=== PATIENT | female | born 1960 | race Caucasian/White ===

== ENCOUNTER → 2017-04-13 | Outpatient (CLI) | payer BC ==
[~2017-04-13] MED LIST: ALBIPROI INH; ALBU90OI INH; AZIT250 PO; AZIT500 PO; Adipex-P37.5 M1 PO; Albuterol2.5 MG/0.5 INH; BECLOMETHASONE10 GM; CARI350 PO; CITA20 PO; CONEST.625 PO; Citalopram HBr20 MG PO; DEXILANT30 MG PO; DEXL60CA3 PO; DOXY100 PO; ESCI10 PO; ESTR25VT PV; ESTRADIOL1 MG PO; FEXO180 PO; FEXO60 PO; FLONASE ALLERG9.9 ML NS; FLUSAL1005 IH; FLUSAL2505 IH; FLUT.05NI; GREEN COFFEE B400 MG; HYDCHLSU PO; HYOS.125 SL; Hydrocodone-Ap1 EA20 PO; IBUHYD PO; LEVCAR10 PO; LEVFLO500 PO; LEVO-T88 MCG PO; LEVSOD88 PO; LORA1 PO; MELO7.5 PO; MILN100T PO; MIRALAX17 GM PO; MOMENI; Mobic15 MG PO; NODOLOR CAPSUL1 EACH PO; OXYC80ER PO; Omeprazole20 M1; PHENTERMINE PO; POLY17UD PO; PRED20 PO; QVAR INH; QVAR7.3 G1; RABE20 PO; SOMA350 MG PO; TEMA15 PO; TEMA7.5 PO; VAGIFEM10 MCG VG; VENL37.5ER PO; [UNRECOGNIZED DRUG - OTHER] PO
[2017-04-16 15:04] LABS: Rheumatoid Factor, Serum Negative (Negative)
[2017-04-18 11:17] LABS: Antinuclear Antibody Screen Positive Cytoplasmic (Negative)
[2017-04-18 11:18] LABS: ANA Pattern Speckled
== END | disposition home or self-care (01) ==
LOC: OLS 13:40
PROVIDERS: Hospitalist
DX: M19.90 Unspecified osteoarthritis, unspecified site (principal); M25.50 Pain in unspecified joint
CPT/HCPCS: 85651; 86038; 86039; 86430

== ENCOUNTER → 2017-11-20 | Outpatient (CLI) | payer BC ==
[2017-11-21 13:10] LABS: Percent Saturation 29.9 % (15.0-50.0)
== END | disposition home or self-care (01) ==
LOC: LAB 15:55 → LAB SHORT 15:55
PROVIDERS: Hospitalist
DX: E55.9 Vitamin D deficiency, unspecified (principal); R78.89 Finding of other specified substances, not normally found in blood
CPT/HCPCS: 82306; 82728; 83540; 83550

== ENCOUNTER → 2018-04-29 | Outpatient (CLI) | payer SELFPAY ==
[2018-04-29 14:15] LABS: Free Thyroxine 0.87 ng/dL (0.70-1.60)
[2018-04-29 14:18] LABS: Thyroid Stimulating Hormone 0.04 uIU/mL (0.360-4.800)
== END | disposition home or self-care (01) ==
LOC: LAB 10:59 → LAB SHORT 10:59
PROVIDERS: Hospitalist
DX: E03.9 Hypothyroidism, unspecified (principal)
CPT/HCPCS: 84439; 84443

== ENCOUNTER → 2018-09-03 | Outpatient (CLI) | payer OTHER ==
[2018-09-03 11:01] LABS: Anion Gap 5 mmol/L (6-16); Blood Urea Nitrogen 17 mg/dL (8-24); Bun/Creatinine Ratio 31.2 (12.0-20.0); CO2, Blood 32 mmol/L (21-32); Calcium, Blood 8.5 mg/dL (8.5-10.1); Chloride, Blood 106 mmol/L (98-108); Creatinine, Blood 0.54 mg/dL (0.40-1.00); Glomerular Filtration Rate >60 (60-); Glucose, Blood 117 mg/dL (70-99); Potassium, Blood 3.6 mmol/L (3.5-5.5); Sodium, Blood 143 mmol/L (136-145)
== END | disposition home or self-care (01) ==
LOC: LAB 10:22 → LAB SHORT 10:22
PROVIDERS: Hospitalist
DX: R60.9 Edema, unspecified (principal)
CPT/HCPCS: 80048

== ENCOUNTER 2018-10-23 10:18 | Day surgery (SDC) | payer OTHER ==
[~2018-10-23] VITALS: Ht 160 cm; Wt 69.7 kg
[2018-10-23] MEDS ORDERED: VITAMIN D5000 UNIT (11:32)
[2018-10-23] MEDS ORDERED: DHEA (11:32)
[2018-10-23] MEDS ORDERED: IRON236 MG (11:32)
[2018-10-23] MEDS ORDERED: OXYC10ER (11:33)
[2018-10-23] MEDS ORDERED: ESTR2 (11:33)
[2018-10-23] MEDS ORDERED: GARCINIA CAMBO1 EACH (11:33)
--- NOTE | 2018-10-23 15:27 | NUR ---
10/23/18 1527 Constanza Morrell (Gali AFTER PROCEDURE BEGAN, PATIENT'S BLOOD PRESSURE SPIKED TO 200/100. BLOOD PRESSURE CONTINUED TO INCREASE. DR. URBANO NOTIFIED. PROCEDURE STOPPED, SCOPE REMOVED. WHEN PRESSURE REACHED 240/114 DR. URBANO ORDERED 10MG LABETALOL IVP. MEDICATION ADMINISTERED AND PATIENT'S BLOOD PRESSURE RETURNED TO BASELINE OF 141/63. IN RECOVERY PATIENT'S BLOOD PRESSURE 135/64, 135/65. DR. URBANO DISCHARGED PATIENT HOME WITH REFERRAL TO SEE PRIMARY CARE PHYSICIAN TO ADDRESS HYPERTENSION. PT AGREED WITH PLAN TO CONTACT PCP, DENIED NEEDS OR COMPLAINTS. PT DISCHARGED HOME WITH PAIN RATED AT 5/10 FOR "ALL OVER PAIN" INCLUDING ABDOMINAL, NECK, BACK, HIP PAIN. PT REPORTED 7/10 PAIN UPON ADMISSION. PT STS PAIN IMPROVED AFTER PROCEDURE.
== END 2018-10-23 12:50 | disposition home or self-care (01) ==
LOC: ORSCSDS 10:18
PROVIDERS: Internal Medicine Gastroenterology
PROC: 0D758ZZ Dilation of Esophagus, Via Natural or Artificial Opening Endoscopic (ICD-10-PCS; principal; 2018-10-23 12:00)
DX: R13.10 Dysphagia, unspecified (principal); K22.2 Esophageal obstruction; Z87.891 Personal history of nicotine dependence; J45.909 Unspecified asthma, uncomplicated; E03.9 Hypothyroidism, unspecified; Z79.899 Other long term (current) drug therapy
CPT/HCPCS: C1726; J2704; J7120

== ENCOUNTER 2018-11-13 09:07 | Day surgery (SDC) | payer OTHER ==
[~2018-11-13] VITALS: Ht 157.5 cm; Wt 69.3 kg
[~2018-11-13 09:07] MED LIST changes: +DHEA; +ESTR2; +GARCINIA CAMBO1 EACH; +IRON236 MG; +OXYC10ER; +VITAMIN D5000 UNIT
[2018-11-13] MEDS ORDERED: Fentanyl1 EAC4 (09:42)
--- NOTE | 2018-11-13 12:18 | NUR ---
11/13/18 1218 Kimberli Castro S PT. C/O LEFT SHOULDER & NECK PAIN POST PROCEDURE. PT. VERBALZIES HAVING PAIN IN THESE AREAS AFTER HER SURGERY FOR FUNDOPLICATION ON OCTOBER 01, 2018. PT. VERBALIZES HAVING PT YESTERDAY. PT. ALSO C/O NAUSEA & WAS GIVEN ZOFRAN PER [facility]DLB PER DR. MARTINES. PT. SPITTING UP OBSERVED TO BE LIKE "SPIT" SECRETIONS. PT. VERBALIZES FEELING LIKE SOMETHING IS IN HER STOMACH & IT NEEDS TO COME UP BUT CAN'T. PT. DENIES SORE THROAT. DR. URBANO AWARE & ORDERED CT SCAN. PT.CRYING/WHIMPERING AT TIMES.
== END 2018-11-13 13:33 | disposition home or self-care (01) ==
LOC: ORSCSDS 09:07
PROVIDERS: Internal Medicine Gastroenterology
PROC: 0D758ZZ Dilation of Esophagus, Via Natural or Artificial Opening Endoscopic (ICD-10-PCS; principal; 2018-11-13 10:30)
DX: R13.10 Dysphagia, unspecified (principal); K21.9 Gastro-esophageal reflux disease without esophagitis; K22.2 Esophageal obstruction; I10 Essential (primary) hypertension; M79.7 Fibromyalgia; E03.9 Hypothyroidism, unspecified; J45.909 Unspecified asthma, uncomplicated; Z87.891 Personal history of nicotine dependence; Z79.899 Other long term (current) drug therapy
CPT/HCPCS: 71250; C1726; J2250; J2405; J2704; J7120

== ENCOUNTER 2018-12-16 12:23 | Day surgery (SDC) | payer OTHER ==
[~2018-12-16] VITALS: Ht 157.5 cm; Wt 71.4 kg
[~2018-12-16 12:23] MED LIST changes: +Fentanyl1 EAC4
--- NOTE | 2018-12-16 15:35 | NUR ---
12/16/18 1535 Sarah Gutierrez LATE ENTRY--PATIENT WOKE UP WITH NO PAIN AND SWALLOWING OK SHE WAS ABLE TO DRINK JUICE WITHOUT PAIN BUT SHORTLY AFTER DRINKING SHE HAD TO SPIT UP SOME OF THE JUICE. PATIENT EXPRESSED THAT SHE WANTED TO GO HOME SO SHE WAS DISCHARGED IN STABLE CONDITION
== END 2018-12-16 14:45 | disposition home or self-care (01) ==
LOC: ORSCSDS 12:23
PROVIDERS: Internal Medicine Gastroenterology
PROC: 0D758ZZ Dilation of Esophagus, Via Natural or Artificial Opening Endoscopic (ICD-10-PCS; principal; 2018-12-16 13:30)
DX: R13.10 Dysphagia, unspecified (principal); K21.9 Gastro-esophageal reflux disease without esophagitis; J45.909 Unspecified asthma, uncomplicated; M79.7 Fibromyalgia; I10 Essential (primary) hypertension; E03.9 Hypothyroidism, unspecified; Z87.891 Personal history of nicotine dependence; Z79.899 Other long term (current) drug therapy
CPT/HCPCS: C1726; J2250; J2704; J7120

== ENCOUNTER 2019-01-13 07:01 | Emergency (ER) | payer OTHER ==
[~2019-01-13] VITALS: Ht 162.6 cm; Wt 61.2 kg
[2019-01-13 07:33] LABS: BASOPHILS ABSOLUTE AUTO 0.05 K/mm3 (0.00-0.23); BASOPHILS PERCENT AUTO 0 % (0-2); EOSINOPHILS ABSOLUTE AUTO 0.46 K/mm3 (0.00-0.68); EOSINOPHILS PERCENT AUTO 4 % (0-6); Hematocrit 39.9 % (33.0-51.0); Hemoglobin 13.1 g/dL (11.5-16.0); IMMATURE GRAN ABSOLUTE AUTO 0.04 K/mm3 (0.00-0.10); IMMATURE GRAN PERCENT AUTO 0 % (0-1); LYMPHOCYTES ABSOLUTE AUTO 2.35 K/mm3 (0.84-5.20); LYMPHOCYTES PERCENT AUTO 20 % (21-46); MONOCYTES ABSOLUTE AUTO 0.95 K/mm3 (0.16-1.47); MONOCYTES PERCENT AUTO 8 % (4-13); Mean Corpuscular HGB 29.3 pg (26.0-34.0); Mean Corpuscular HGB Conc 32.8 g/dL (31.5-36.5); Mean Corpuscular Volume 89 fL (80-100); Mean Platelet Volume 8.9 fL (9.1-12.4); NEUTROPHILS ABSOLUTE AUTO 7.85 K/mm3 (1.96-9.15); NEUTROPHILS PERCENT AUTO 67 % (41-73); Platelet Count 346 K/mm3 (150-400); RDW Coefficient Variation 12.1 % (11.7-14.2); RDW Standard Deviation 39.8 fL (35.1-46.3); Red Blood Cell Count 4.47 M/mm3 (3.80-5.20)
[2019-01-13 07:48] LABS: Alanine Aminotransfer (ALT/SGP 24 U/L (12-78); Albumin, Blood 3.2 g/dL (3.4-5.0); Albumin/Globulin Ratio 0.7 (0.8-1.8); Alk Phos 153 U/L (50-136); Anion Gap 7 mmol/L (6-16); Aspartate Aminotrans (AST/SGOT 18 U/L (12-37); Bilirubin, Total 0.2 mg/dL (0.1-1.0); Blood Urea Nitrogen 6 mg/dL (8-24); CO2, Blood 30 mmol/L (21-32); Calcium, Blood 9.2 mg/dL (8.5-10.1); Chloride, Blood 100 mmol/L (98-108); Creatinine, Blood 0.67 mg/dL (0.40-1.00); Globulin, Blood 4.6 g/dL (2.2-4.0); Glomerular Filtration Rate >60 (60-); Glucose, Blood 105 mg/dL (70-99); Potassium, Blood 3.3 mmol/L (3.5-5.5); Sodium, Blood 137 mmol/L (136-145); Total Protein, Blood 7.8 g/dL (6.4-8.2)
[2019-01-13] MEDS ORDERED: GABA300 PO (08:27)
[2019-01-13] MEDS ORDERED: Fentanyl1 EACH TOP (08:28)
[2019-01-13] MEDS ORDERED: METOPROLOL SUCC25 MG PO (08:28)
== END 2019-01-13 12:53 | disposition short-term general hospital (02) ==
LOC: ER 07:01
PROVIDERS: Emergency Medicine
DX: G89.18 Other acute postprocedural pain (principal); K22.8 Other specified diseases of esophagus; Z96.89 Presence of other specified functional implants; Z87.891 Personal history of nicotine dependence; Z88.0 Allergy status to penicillin; Z88.2 Allergy status to sulfonamides; Z88.1 Allergy status to other antibiotic agents; Z88.5 Allergy status to narcotic agent; Z88.8 Allergy status to other drugs, medicaments and biological substances; Z79.899 Other long term (current) drug therapy; Z79.891 Long term (current) use of opiate analgesic
CPT/HCPCS: 36415; 71260; 80053; 83690; 85025; 96361; 96374-59; 96375-59; 96376-59; 99285-25; J1170; J2060; J2405; J7030; J7120; Q9967

== ENCOUNTER 2019-02-06 10:36 | Day surgery (SDC) | payer OTHER ==
[~2019-02-06] VITALS: Ht 157.5 cm; Wt 69.5 kg
[~2019-02-06 10:36] MED LIST changes: +Fentanyl1 EACH TOP; +GABA300 PO; +METOPROLOL SUCC25 MG PO
--- NOTE | 2019-02-06 14:39 | NUR ---
02/06/19 1439 Azul Chou PT RESTING ON RECLINER, TALKING WELL AND COMMUNICATES WELL. PT AWAKE, ALERT, ORIENTED. LEFT LEG ELEVATED. PT MEDICATED FOR PAIN 08/16. PT TOLERATING WATER. WILL CONTINUE TO MONITOR.
== END 2019-02-06 15:31 | disposition home or self-care (01) ==
LOC: ORSCSDS 10:36
PROVIDERS: Podiatrist
PROC: 0QBP0ZZ Excision of Left Metatarsal, Open Approach (ICD-10-PCS; principal; 2019-02-06 12:00)
PROC: 0QSP04Z Reposition Left Metatarsal with Internal Fixation Device, Open Approach (ICD-10-PCS; principal; 2019-02-06 12:00)
DX: M20.22 Hallux rigidus, left foot (principal); M20.5X2 Other deformities of toe(s) (acquired), left foot; I10 Essential (primary) hypertension; J45.909 Unspecified asthma, uncomplicated; E03.9 Hypothyroidism, unspecified; K21.9 Gastro-esophageal reflux disease without esophagitis; Z79.899 Other long term (current) drug therapy
CPT/HCPCS: C1713; J1100; J2001; J2250; J2405; J2704; J3010; J7120

== ENCOUNTER → 2019-07-02 | Outpatient (CLI) | payer OTHER | END | disposition home or self-care (01) | LOC: LAB SHORT 13:30 → LAB 13:30 | DX: R30.0 Dysuria (principal) | CPT/HCPCS: 87086 ==

== ENCOUNTER → 2021-02-14 | Outpatient (CLI) | payer OTHER, BC ==
[2021-02-14 16:52] LABS: Alanine Aminotransfer (ALT/SGP 27 U/L (12-78); Albumin, Blood 3.5 g/dL (3.4-5.0); Alk Phos 151 U/L (50-136); Anion Gap 4 mmol/L (6-16); Aspartate Aminotrans (AST/SGOT 18 U/L (12-37); Bilirubin, Total 0.2 mg/dL (0.1-1.0); Blood Urea Nitrogen 17 mg/dL (8-24); CO2, Blood 28 mmol/L (21-32); Calcium, Blood 8.5 mg/dL (8.5-10.1); Chloride, Blood 104 mmol/L (98-108); Creatinine, Blood 0.71 mg/dL (0.40-1.00); Free Thyroxine 1.12 ng/dL (0.70-1.60); Globulin, Blood 3.5 g/dL (2.2-4.0); Glomerular Filtration Rate >60 (60-); Glucose, Blood 89 mg/dL (70-99); Potassium, Blood 3.8 mmol/L (3.5-5.5); Sodium, Blood 136 mmol/L (136-145); Thyroid Stimulating Hormone 0.559 uIU/mL (0.360-4.800)
== END | disposition home or self-care (01) ==
LOC: LAB SHORT 13:47
PROVIDERS: Hospitalist
DX: I10 Essential (primary) hypertension (principal); E03.9 Hypothyroidism, unspecified
CPT/HCPCS: 80053; 84439; 84443

== ENCOUNTER 2021-06-13 11:38 | Emergency (ER) | payer BC ==
[~2021-06-13] VITALS: Ht 160 cm; Wt 74.8 kg
[2021-06-13 12:23] LABS: BASOPHILS ABSOLUTE AUTO 0.06 K/mm3 (0.00-0.23); BASOPHILS PERCENT AUTO 0 % (0-2); EOSINOPHILS ABSOLUTE AUTO 0.19 K/mm3 (0.00-0.68); EOSINOPHILS PERCENT AUTO 1 % (0-6); Hematocrit 44.4 % (33.0-51.0); Hemoglobin 14.8 g/dL (11.5-16.0); IMMATURE GRAN ABSOLUTE AUTO 0.05 K/mm3 (0.00-0.10); IMMATURE GRAN PERCENT AUTO 0 % (0-1); LYMPHOCYTES PERCENT AUTO 26 % (21-46); MONOCYTES ABSOLUTE AUTO 1.29 K/mm3 (0.16-1.47); MONOCYTES PERCENT AUTO 9 % (4-13); Mean Corpuscular HGB 30.6 pg (26.0-34.0); Mean Corpuscular HGB Conc 33.3 g/dL (31.5-36.5); Mean Corpuscular Volume 92 fL (80-100); Mean Platelet Volume 10.5 fL (9.1-12.4); NEUTROPHILS ABSOLUTE AUTO 9.51 K/mm3 (1.96-9.15); NEUTROPHILS PERCENT AUTO 64 % (41-73); Platelet Count 289 K/mm3 (150-400); RDW Coefficient Variation 12.8 % (11.7-14.2); RDW Standard Deviation 43.1 fL (35.1-46.3); Red Blood Cell Count 4.84 M/mm3 (3.80-5.20)
[2021-06-13 12:49] LABS: Alanine Aminotransfer (ALT/SGP 38 U/L (12-78); Albumin, Blood 3.4 g/dL (3.4-5.0); Albumin/Globulin Ratio 1.1 (0.8-1.8); Alk Phos 138 U/L (50-136); Anion Gap 6 mmol/L (6-16); Aspartate Aminotrans (AST/SGOT 58 U/L (12-37); Bilirubin, Total 0.2 mg/dL (0.1-1.0); Blood Urea Nitrogen 20 mg/dL (8-24); Bun/Creatinine Ratio 28.1 (12.0-20.0); CO2, Blood 27 mmol/L (21-32); Chloride, Blood 106 mmol/L (98-108); Creatinine, Blood 0.71 mg/dL (0.40-1.00); Globulin, Blood 3.2 g/dL (2.2-4.0); Glomerular Filtration Rate >60 (60-); Glucose, Blood 102 mg/dL (70-99); Potassium, Blood 4.2 mmol/L (3.5-5.5); Sodium, Blood 139 mmol/L (136-145); Total Protein, Blood 6.6 g/dL (6.4-8.2)
[2021-06-13] MEDS ORDERED: METO100ER PO (14:14)
[2021-06-13] MEDS ORDERED: FLUTICASONE-SA1 EAC9 IH (14:14)
[2021-06-13] MEDS ORDERED: LINZESS72 MCG PO (14:16)
[2021-06-13] MEDS ORDERED: HYOS.125 PO (17:01)
== END 2021-06-13 17:17 | disposition home or self-care (01) ==
LOC: ER 11:38
PROVIDERS: Physician Assistant
DX: R10.13 Epigastric pain (principal); E03.9 Hypothyroidism, unspecified; K21.9 Gastro-esophageal reflux disease without esophagitis; F17.200 Nicotine dependence, unspecified, uncomplicated; Z88.0 Allergy status to penicillin; Z88.2 Allergy status to sulfonamides; Z88.8 Allergy status to other drugs, medicaments and biological substances; Z79.899 Other long term (current) drug therapy
CPT/HCPCS: 36415; 74177; 76705; 80053; 83690; 85025; 93005; 93010; J1885; J2270; J2405; J7030; Q9967

== ENCOUNTER 2021-06-22 08:45 | Observation (INO) | payer BC ==
[~2021-06-22] VITALS: Ht 160 cm; Wt 74.8 kg
[~2021-06-22 08:45] MED LIST changes: +FLUTICASONE-SA1 EAC9 IH; +HYOS.125 PO; +LINZESS72 MCG PO; +METO100ER PO
[2021-06-22 09:48] LABS: Source, Urine Clean Catch
[2021-06-22 09:53] LABS: BASOPHILS ABSOLUTE AUTO 0.07 K/mm3 (0.00-0.23); BASOPHILS PERCENT AUTO 1 % (0-2); EOSINOPHILS ABSOLUTE AUTO 0.17 K/mm3 (0.00-0.68); EOSINOPHILS PERCENT AUTO 1 % (0-6); Hematocrit 46.3 % (33.0-51.0); Hemoglobin 15.2 g/dL (11.5-16.0); IMMATURE GRAN ABSOLUTE AUTO 0.04 K/mm3 (0.00-0.10); IMMATURE GRAN PERCENT AUTO 0 % (0-1); LYMPHOCYTES ABSOLUTE AUTO 2.85 K/mm3 (0.84-5.20); LYMPHOCYTES PERCENT AUTO 23 % (21-46); MONOCYTES ABSOLUTE AUTO 1.07 K/mm3 (0.16-1.47); MONOCYTES PERCENT AUTO 9 % (4-13); Mean Corpuscular HGB 30.5 pg (26.0-34.0); Mean Corpuscular HGB Conc 32.8 g/dL (31.5-36.5); Mean Corpuscular Volume 93 fL (80-100); Mean Platelet Volume 10.5 fL (9.1-12.4); NEUTROPHILS ABSOLUTE AUTO 7.98 K/mm3 (1.96-9.15); NEUTROPHILS PERCENT AUTO 66 % (41-73); Platelet Count 246 K/mm3 (150-400); RDW Coefficient Variation 12.8 % (11.7-14.2); RDW Standard Deviation 43.7 fL (35.1-46.3); Red Blood Cell Count 4.99 M/mm3 (3.80-5.20); White Blood Cell Count 12.18 K/mm3 (4.00-11.30)
[2021-06-22 09:56] LABS: Appearance, Urine Clear (Clear); Bilirubin, Urine Neg (Neg); Blood, Urine Neg (Neg); Color, Urine Yellow (P-Yellow); Glucose Qualitative, Urine Neg (Neg); Ketones, Urine 1+ (Neg); Leukocyte Esterase, Urine Neg (Neg); Nitrite, Urine Neg (Neg); Protein, Urine Neg (Neg); Specific Gravity, Urine 1.025 (1.003-1.022); Urobilinogen, Urine 1+ (Normal)
[2021-06-22 10:16] LABS: Alanine Aminotransfer (ALT/SGP 78 U/L (12-78); Albumin/Globulin Ratio 1.1 (0.8-1.8); Alk Phos 203 U/L (50-136); Anion Gap 7 mmol/L (6-16); Aspartate Aminotrans (AST/SGOT 76 U/L (12-37); Bilirubin, Direct 0.3 mg/dL (0.0-0.3); Bilirubin, Indirect 0.2 mg/dL (0.1-0.7); Bilirubin, Total 0.5 mg/dL (0.1-1.0); Blood Urea Nitrogen 19 mg/dL (8-24); Bun/Creatinine Ratio 27.9 (12.0-20.0); CO2, Blood 29 mmol/L (21-32); Chloride, Blood 103 mmol/L (98-108); Creatinine, Blood 0.68 mg/dL (0.40-1.00); Globulin, Blood 3.8 g/dL (2.2-4.0); Glomerular Filtration Rate >60 (60-); Glucose, Blood 108 mg/dL (70-99); Magnesium, Blood 2.3 mg/dL (1.6-2.4); Potassium, Blood 3.9 mmol/L (3.5-5.5); Sodium, Blood 139 mmol/L (136-145); Total Protein, Blood 7.8 g/dL (6.4-8.2)
[2021-06-22 20:06] LABS: Influenza A, PCR NEGATIVE (NEGATIVE); Influenza B, PCR NEGATIVE (NEGATIVE); Resp Syncytial Virus, PCR NEGATIVE (NEGATIVE); SARS-Cov-2 (COVID-19) PCR, MMC NEGATIVE (NEGATIVE)
--- NOTE | 2021-06-23 01:50 | NUR ---
SHIFT SUMMARY: PT. IS AOX4, AMBULATES IN THE ROOM INDEPENDENTLY, REMINDED TO CALL FOR ASSISTANCE & NOT FALL, CLWR, PT. VERBALIZED UNDERSTANDING. NPO STARTED AT MIDNIGHT. VOIDING WELL, DENIES PAIN UP TO THIS TIME.SLEEPING WELL, ROUNDING PER PROTOCOL IMPLEMENTED. NO S/S OF RESP./CV DISTRESS NOTED.WILL CONTINUE TO MONITOR.
[2021-06-23 04:41] LABS: BASOPHILS ABSOLUTE AUTO 0.05 K/mm3 (0.00-0.23); BASOPHILS PERCENT AUTO 1 % (0-2); EOSINOPHILS ABSOLUTE AUTO 0.06 K/mm3 (0.00-0.68); EOSINOPHILS PERCENT AUTO 1 % (0-6); Hematocrit 40.6 % (33.0-51.0); IMMATURE GRAN ABSOLUTE AUTO 0.02 K/mm3 (0.00-0.10); IMMATURE GRAN PERCENT AUTO 0 % (0-1); LYMPHOCYTES ABSOLUTE AUTO 1.44 K/mm3 (0.84-5.20); LYMPHOCYTES PERCENT AUTO 30 % (21-46); MONOCYTES ABSOLUTE AUTO 0.55 K/mm3 (0.16-1.47); MONOCYTES PERCENT AUTO 12 % (4-13); Mean Corpuscular HGB 29.7 pg (26.0-34.0); Mean Corpuscular Volume 93 fL (80-100); Mean Platelet Volume 10.8 fL (9.1-12.4); NEUTROPHILS ABSOLUTE AUTO 2.68 K/mm3 (1.96-9.15); NEUTROPHILS PERCENT AUTO 56 % (41-73); Platelet Count 158 K/mm3 (150-400); RDW Coefficient Variation 12.9 % (11.7-14.2); RDW Standard Deviation 43.9 fL (35.1-46.3); Red Blood Cell Count 4.37 M/mm3 (3.80-5.20)
[2021-06-23 05:02] LABS: Anion Gap 2 mmol/L (6-16); Blood Urea Nitrogen 10 mg/dL (8-24); Bun/Creatinine Ratio 13.6 (12.0-20.0); CO2, Blood 31 mmol/L (21-32); Calcium, Blood 8.2 mg/dL (8.5-10.1); Chloride, Blood 109 mmol/L (98-108); Creatinine, Blood 0.74 mg/dL (0.40-1.00); Glomerular Filtration Rate >60 (60-); Glucose, Blood 98 mg/dL (70-99); Potassium, Blood 4.1 mmol/L (3.5-5.5); Sodium, Blood 142 mmol/L (136-145)
--- NOTE | 2021-06-23 11:22 | NUR ---
PT RECENTLY TO [facility] WITH OTHER STAFF AND FAMILY. History, Chart, Medications and Allergies reviewed before start of procedure.Lungs clear T/O to Auscultation. Patient confirms NPO status and agrees with scheduled surgery. Pre-Op teaching done. Pt verbalizes understanding.
--- NOTE | 2021-06-23 11:48 | NUR ---
Pt. is in bed and awake. Pt. welcomes my visit. Spouse is present. Pt. is unsettled about the delay in her procedure. Listen empathetically and normalize the Pt. expereince. Pt. displayed evidence of reduced anxiety. Call soon came for her to go to surgery. Prayed with pt. Pt. and spouse verbalized gratitude for the spiritual care visit.
--- NOTE | 2021-06-23 12:40 | NUR ---
06/23/21 1240 Rupinder Garcia PATIENT ON SHEDULED ANTIBIOTICS. LAST GIVEN FLAGYL 500MG TODAY AT 1031. METOPROLOL WAS HELD THIS MORNING DUE TO LOW HR.
[2021-06-23] MEDS ORDERED: OXYC10TA19 PO (15:44)
--- NOTE | 2021-06-23 17:46 | NUR ---
DISCHARGE SUMMARY POD0 LAP MUSA, A/OX4, VSS, TOLERATING PO, AMBULATING, VOIDING WELL, PAIN MANAGED PER EMAR. DISCUSSED DISCHARGE INSTRUCTIONS INCLUDING HOME CARE, NEW MEDICATIONS, AND FOLLOW UP WITH PRIMARY CARE AND SURGEON. PROVIDED CONTACT INFORMATION FOR ANY QUESTIONS THAT ARISE AFTER DISCHARGE. PT HAD NO QUESTIONS AT TIME OF DISCHARGE. PT ESCORTED OUT VIA WC TO PRIVATE AUTO TO GO HOME WITH ALL PERSONAL POSSESSIONS. IV ACCESS DEVICE REMOVED AND NO OTHER IV ACCESS DEVICES IN PLACE PRIOR TO DISCHARGE.
== END 2021-06-23 17:31 | disposition home or self-care (01) ==
LOC: ER 08:45 → SURS 08:46
PROVIDERS: Emergency Medicine; Family Medicine; Student in an Organized Health Care Education/Training Program; Surgery; ADMIT Internal Medicine
PROC: 0FT44ZZ Resection of Gallbladder, Percutaneous Endoscopic Approach (ICD-10-PCS; principal; 2021-06-23 09:30)
DX: K80.12 Calculus of gallbladder with acute and chronic cholecystitis without obstruction (principal); K66.0 Peritoneal adhesions (postprocedural) (postinfection); I10 Essential (primary) hypertension; J45.909 Unspecified asthma, uncomplicated; E03.9 Hypothyroidism, unspecified; K21.9 Gastro-esophageal reflux disease without esophagitis; G89.29 Other chronic pain; G50.0 Trigeminal neuralgia; F41.8 Other specified anxiety disorders; F17.210 Nicotine dependence, cigarettes, uncomplicated; Z88.0 Allergy status to penicillin; Z88.1 Allergy status to other antibiotic agents; Z88.2 Allergy status to sulfonamides; Z88.8 Allergy status to other drugs, medicaments and biological substances; Z20.822 Contact with and (suspected) exposure to COVID-19
CPT/HCPCS: 0241U; 36415; 74181; 76705; 80048; 80053; 80076; 81003; 82248; 83690; 83735; 85025; 87086; 88304; 94640; 94760; 96365; 96367; 96374; 96375; 96376; 99285-25; A9270; G0378; J1100; J1885; J1956; J2250; J2270; J2405; J2704; J2710; J3010; J3480; J7030; J7120; Q0177

== ENCOUNTER 2021-09-28 13:52 | Inpatient (IN) | payer BC ==
[~2021-09-28] VITALS: Ht 167.6 cm; Wt 75.9 kg
[~2021-09-28 13:52] MED LIST changes: +OXYC10TA19 PO
[2021-09-28 14:23] LABS: Hematocrit 46.1 % (33.0-51.0); Hemoglobin 13.9 g/dL (11.5-16.0); Mean Corpuscular HGB 30.4 pg (26.0-34.0); Mean Corpuscular HGB Conc 30.2 g/dL (31.5-36.5); Mean Corpuscular Volume 101 fL (80-100); Mean Platelet Volume 11.6 fL (9.1-12.4); NRBC ABSOLUTE 0.04 K/mm3 (0.00-0.02); NRBC Auto 0.3 /100 WBC (0.0-0.2); Platelet Count 252 K/mm3 (150-400); RDW Coefficient Variation 12.4 % (11.7-14.2); RDW Standard Deviation 46.4 fL (35.1-46.3); Red Blood Cell Count 4.57 M/mm3 (3.80-5.20); White Blood Cell Count 15.71 K/mm3 (4.00-11.30)
[2021-09-28 14:36] LABS: Albumin, Blood 3.5 g/dL (3.4-5.0); Albumin/Globulin Ratio 1.1 (0.8-1.8); Bilirubin, Total 0.3 mg/dL (0.1-1.0); Bun/Creatinine Ratio 16.2 (12.0-20.0); Calcium, Blood 10.1 mg/dL (8.5-10.1); Creatinine, Blood 0.99 mg/dL (0.40-1.00); Globulin, Blood 3.1 g/dL (2.2-4.0); Potassium, Blood 4.2 mmol/L (3.5-5.5); Total Protein, Blood 6.6 g/dL (6.4-8.2)
[2021-09-28 15:14] LABS: Influenza A, PCR NEGATIVE (NEGATIVE); Influenza B, PCR NEGATIVE (NEGATIVE); Resp Syncytial Virus, PCR NEGATIVE (NEGATIVE); SARS-Cov-2 (COVID-19) PCR, MMC NEGATIVE (NEGATIVE)
[2021-09-28 15:26] LABS: BASOPHILS PERCENT MAN 0 % (0-2); EOSINOPHILS PERCENT MAN 0 % (0-6); LYMPHOCYTES ABSOLUTE MAN 7.54 K/mm3 (0.84-5.20); LYMPHOCYTES PERCENT MAN 48 % (21-46); METAMYELOCYTE ABSOLUTE MAN 0.15 K/mm3 (0.00-0.00); METAMYELOCYTE PERCENT MAN 1 % (0-0); MONOCYTES ABSOLUTE MAN 0.47 K/mm3 (0.16-1.47); MONOCYTES PERCENT MAN 3 % (4-13); MYELOCYTE ABSOLUTE MAN 0.15 K/mm3 (0.00-0.00); MYELOCYTE PERCENT MAN 1 % (0-0); NEUTROPHILS ABSOLUTE MAN 7.38 K/mm3 (1.96-9.15); SEG NEUTROPHILS PERCENT MAN 47 % (41-73); TOTAL CELLS COUNTED 100
--- NOTE | 2021-09-28 15:47 | NUR ---
PT ARRIVED TO ICU AROUND 1515. PT UNRESPONSIVE; DECORTICATE POSTURING WITH ANY STIMULATION. +BABINSKI BILAT. PT WITH FREQUENT POSTURING WITH BODY TREMORS; ATIVAN 2MG GIVEN; DR ROBERTSON CALLED AND UPDATED, AT BEDSIDE NOW. FENTANYL PATCH FOUND TO UPPER CHEST AND REMOVED; WASTED WITH ANTONIO HYMAN RN. ESTROGEN PATCH WAS HALF WAY OFF; REMOVED. IO TO R NIÑO FLUSHED, DRAWS BACK BLOOD. OG PLACED W/O DIFF, AIR ALSCULTATED OVER STOMACH, WILL GET IMAGING ER HAD A DIFFICULT TIME PLACEING OGT. 14F ASHTON PLACED, MINIMAL U/O. BLADDER SCANNER SHOWS NO URINE. ABD W SEVERE DISTENSION, ABSENT BT'S. SKIN COOL AND MOTTLED. PUPILS 10MM FIXED. ABSENT GAG, COUGH, SWALLOW. PROPOFOL AT 30MCG. BP LOW W MAP >65. PICC PLACED.
[2021-09-28 18:19] LABS: PCO2 Arterial 34.3 mmHg (35-45); PO2 Arterial 93.5 mmHg (80-100); pH Blood Arterial 7.38 (7.35-7.45)
--- NOTE | 2021-09-28 18:37 | NUR ---
Spiritual Care Request - Palliative Care. Pt. is unresponsive. Familiy members include some of our hospital staff. Palliative Care briefed this forepart rasper, met with you efamily members who were outside the hospital building. Provided a calming presence, and prayed with family. Returned to ICU9. Granddaughter, daughter, and FAUSTINA of Pt. are present. Dr. Mcleod briefed the family. Pts. daughter verbalized that Justin Diazlps (Uncle Justin) should be notified of all status changes. De-briefed with other Palliative Care staff. Will remain available to Justin and the family.
--- NOTE | 2021-09-28 19:25 | NUR ---
CT OF HEAD AND ABD COMPLETED. DR ROBERTSON SPOKE TO FAMILY SEVERAL TIMES UPDATING THEM. PT CONTINUED TO POSTURE WITH MYCLONIC JERKING. VERSED 2MG GIVEN; THIS SEEMED TO SLOW THAT ACTIVITY DOWN. ABD BECOMING SOFTER. OGT TO LIS; OGT IN DISTAL ESOPHAGUS; DISCUSSED WITH DR ROBERTSON. OKAY TO LEAVE OGT TO SUCTION BUT NOT TO ADVANCE IT OR PLACED ANYTHING DOWN TUBE. IR OR GI MAY BE CONSULTED TO PLACED FURTHER PER DR ROBERTSON. ABD TONES ABSENT ON ADMIT BUT NOW TYMPANIC. IL BOLUS GIVEN FOR BRDERLINE LOW BP W/O URINE OUTPUT. BP HAS IMPROVED AND SMALL AMT OF URINE MADE. PUPILS NOW CLOSER TO 6MM BUT REMAIN NON-REACTIVE.
--- NOTE | 2021-09-28 19:29 | NUR ---
ASSUMPTION OF CARE PT INTUBATED WITH VENT SETTINGS AC/PC RATE 18, PEEP 5, FIO2 50%. SHE IS RECEIVING PROPOFOL 30MCG/KG/MIN AND NS 75ML/HR. SHE CONTINUES TO HAVE MYOCLONIC JERKING. EYES FLICKER, JAW TWITCHING, ALL EXTREMITIES TWITCH. PUPILS EQUAL, 6MM, SLUGGISH TO RESPOND TO LIGHT. NO TRACKING MOVEMENT. BILAT UPPER EXTREMITIES UNRESPONSIVE TO PAINFUL STIMULI, BILAT FEET RESPOND WITH TOES DOWNWARD AND INTERNAL ROTATION. ABDOMEN VERY DISTENDED, BOWEL TONES HYPOACTIVE. OGT CONNECTED TO LOW INT SUCTION. DUE TO PLACEMENT, OGT WILL ONLY BE USED TO REMOVE AIR AT THIS TIME. ASHTON PATENT AND DRAINING SMALL AMOUNT OF CLOUDY YELLOW URINE. IO TO R NIÑO, PICC TO ELISABETH, 20G RAC. PULSES PALPABLE X4 EXTREMITIES, SINUS RHYTHM WITH RATE IN 70S. SBP 120S-130S. RECTAL PROBE IN PLACE FOR TEMP MONITORING, CURRENT TEMP 97.0. DR ROBERTSON AT BEDSIDE FOR EVAL. CONTINUE VERSED PUSHES, IF NEEDED CALL FOR VERSED GTT. SEE SHIFT ASSESSMENT.
[2021-09-28 21:46] LABS: Source, Urine Foley catheter
[2021-09-28 21:50] LABS: Bilirubin, Urine Neg (Neg); Blood, Urine 4+ (Neg); Glucose Qualitative, Urine 2+ (Neg); Ketones, Urine Neg (Neg); Leukocyte Esterase, Urine Neg (Neg); Nitrite, Urine Neg (Neg); Protein, Urine 4+ (Neg); Urobilinogen, Urine NORM (Normal)
[2021-09-28 21:52] LABS: Appearance, Urine Hazy (Clear); Color, Urine Yellow (P-Yellow)
[2021-09-28 22:01] LABS: U Amphetamine Screen Not Detected; U Barbituate Screen Not Detected; U Benzodiazapine Screen DETECTED; U Buprenorphine Screen Not Detected; U Cannabinoids Screen Not Detected; U Cocaine Screen Not Detected; U Methadone Screen Not Detected; U Methamphetamine Screen Not Detected; U Opiates Screen Not Detected; U Oxycodone Screen Not Detected; U Phencyclidine Screen Not Detected; U Propoxyphene Screen Not Detected
[2021-09-28 22:02] LABS: Amorphous Mod (0-Heavy); Bacteria Mod /hpf; Squamous Epithelial Cells Few /hpf (Few); Transitional Epithelial Cells Few /hpf (0-Rare)
[2021-09-28 22:21] LABS: Albumin, Blood 3.3 g/dL (3.4-5.0); Anion Gap 12 mmol/L (6-16); Blood Urea Nitrogen 23 mg/dL (8-24); Bun/Creatinine Ratio 20.2 (12.0-20.0); CO2, Blood 22 mmol/L (21-32); Calcium, Blood 8.8 mg/dL (8.5-10.1); Chloride, Blood 108 mmol/L (98-108); Creatinine, Blood 1.14 mg/dL (0.40-1.00); Glomerular Filtration Rate 55 (60-); Glucose, Blood 166 mg/dL (70-99); Phosphorus, Blood 1.8 mg/dL (2.5-4.9); Potassium, Blood 2.9 mmol/L (3.5-5.5); Sodium, Blood 142 mmol/L (136-145)
--- NOTE | 2021-09-29 01:36 | NUR ---
UDPATE PT REMAINS INTUBATED. PT BEGAN HAVING CONSISTENT TIDAL VOLUMES 700S-730S. AC/PC CHANGED TO 25/5 WITH FIO2 40%. PT'S TIDAL VOLUMES NOW 600-650S. PT HAS BEEN RECEIVING VERSED EVERY COUPLE HOURS WHEN MYOCLONIC MOVEMENTS INCREASE. EYES CONTIUE TO FLICKER, JAW AND EXTREMITIES TWITCH. UPPER EXTREMITIES EXTEND AND INTERNALLY ROTATE WITH NAILBED PRESSURE. LOWER EXTREMITIES TOES CLENCH AND FEET INTERNALLY ROTATE. PUPILS DECREASING IN SIZE, NOW 4MM AND SLUGGISH TO RESPOND. TEMP PER RECTAL PROBE INCREASED TO 99.2, ICE PACKS AND FAN APPLIED. SBP INCREASING TO 160S. REPEAT LAB DRAW SHOWS POTASSIUM DECREASED TO 2.9. HOSPITALIST UPDATED, ORDERS RECEIVED FOR K PHOS, PRN HYDRALAZINE, AND EEG. PT REMAINS IN NSR WITH RATE IN 60S-70S WITH STRONG PALPABLE PULSES X4 EXTREMITIES. OGT CONNECTED TO LOW INT SUCTION. ABDOMEN REMAINS SEVERELY DISTENDED AND FIRM. UNABLE TO AUSCULTATE BOWEL TONES. SAHTON PATENT AND DRAINING YELLOW/CLOUDY URINE. UA SENT.
--- NOTE | 2021-09-29 06:03 | NUR ---
SHIFT SUMMARY PT REMAINS INTUBATED WITH VENT SETTINGS AC/PC 18/25/5/40%. SHE IS RECEIVING PROPOFOL 30MCG/KG/MIN AND NS 75ML/HR. NEURO: PUPILS HAVE DECREASED TO 4MM, EQUAL, SLUGGISH TO RESPOND TO LIGHT. EYES HAVE UPWARD GAZE. SHE CONTINUES TO HAVE FREQUENT MYOCLONIC MOVEMENT THAT OCCURS WITH AND WITHOUT STIMULATION. EYES FLICKER PARTIALLY OPEN AND CLOSED REPEATEDLY. JAW TWITCHES SIDE TO SIDE. BILAT ARMS ARE RIGID, EXTEND AND INTERNALLY ROTATE. BILAT FEET POINTED DOWNWARD, RIGID AND INTERNALLY ROTATE. NO GAG, COUGH OR SWALLOW. RESP: VENT SETTINGS LISTED ABOVE. LUNG SOUNDS CLEAR IN UPPER LOBES, DIMINISHED IN LOWER LOBES. NO SECRETIONS IN ETT. COMPLIANT WITH VENT. CARDIAC: NSR WITH RATE IN 70S-80S. SBP 120S-140S. PULSES STRONG X4 EXTREMITIES. GI: OGT CONNECTED TO LOW INT SUCTION. NO FLUID REMOVED THIS SHIFT. ABDOMEN REMAINS VERY DISTENDED, FIRM TO TOUCH. BOWEL TONES HYPOACTIVE. 1 SMALL BM THIS SHIFT. : ASHTON PATENT AND DRAINING TO GRAVITY. URINE IS YELLOW AND CLOUDY. SHIFT OUTPUT 1200ML. IO REMOVED FROM R NIÑO, CLEAR DRESSING IN PLACE. PICC REMAINS IN ELISABETH. IV IN RAC. RECTAL PROBE IN PLACE. TMAX 99.2, COOLED WITH ICE PACKS AND FAN. PT MEDICATED WITH MULTIPLE DOSES OF VERSED, 1 DOSE FENTANYL, AND 1 DOSE ATIVAN PER EMAR. SUSTAIN ENGINEER AT BEDSIDE. WILL REPORT TO ONCOMING RN.
[2021-09-29 06:27] LABS: Hematocrit 38.4 % (33.0-51.0); Hemoglobin 13.5 g/dL (11.5-16.0); Mean Corpuscular HGB 30.4 pg (26.0-34.0); Mean Corpuscular HGB Conc 35.2 g/dL (31.5-36.5); Mean Corpuscular Volume 87 fL (80-100); Mean Platelet Volume 10.8 fL (9.1-12.4); Platelet Count 168 K/mm3 (150-400); RDW Coefficient Variation 12.4 % (11.7-14.2); RDW Standard Deviation 39.2 fL (35.1-46.3); Red Blood Cell Count 4.44 M/mm3 (3.80-5.20); White Blood Cell Count 24.89 K/mm3 (4.00-11.30)
[2021-09-29 06:51] LABS: Anion Gap 13 mmol/L (6-16); Blood Urea Nitrogen 25 mg/dL (8-24); Bun/Creatinine Ratio 24.3 (12.0-20.0); CO2, Blood 21 mmol/L (21-32); Calcium, Blood 8.1 mg/dL (8.5-10.1); Chloride, Blood 109 mmol/L (98-108); Creatinine, Blood 1.03 mg/dL (0.40-1.00); Glomerular Filtration Rate 63 (60-); Glucose, Blood 120 mg/dL (70-99); Phosphorus, Blood 3.6 mg/dL (2.5-4.9); Potassium, Blood 2.8 mmol/L (3.5-5.5); Sodium, Blood 143 mmol/L (136-145)
[2021-09-29 06:59] LABS: BAND PERCENT MAN 10 % (0-8); BASOPHILS PERCENT MAN 0 % (0-2); EOSINOPHILS PERCENT MAN 0 % (0-6); LYMPHOCYTES ABSOLUTE MAN 2.48 K/mm3 (0.84-5.20); LYMPHOCYTES PERCENT MAN 10 % (21-46); MONOCYTES ABSOLUTE MAN 0.99 K/mm3 (0.16-1.47); MONOCYTES PERCENT MAN 4 % (4-13); SEG NEUTROPHILS PERCENT MAN 76 % (41-73); TOTAL CELLS COUNTED 100
--- NOTE | 2021-09-29 09:21 | NUR ---
CARE OF PT ASSUMED AT 0700, BEDSIDE REPORT TAKEN. CAMERA MAKER AT BEDSIDE PREPPING PT FOR EEG. PT IS UNRESPONSIVE. PT APPEARS TO BE HAVING DECEREBRATE POSTURING ALONG WITH MYOCLONIC JERKING. UNKNOWN IF PT HAS CORNEAL REFLEX SHE FREQUENT BLINKS AND OPENS EYES W MYOCLONIC JERKING LIKE MOVEMENT. PT DOES NOT SEEM TO RESPOND TO PAIN. PT HAS FREQUENT DECEREBRATE POSTURING, ENTIRE BODY IS VERY RIGID. TOES POINTING DOWNWARD STRAIGHT/EXTENDED. HEAD IS STIFF AND TURNED TO RIGHT SIDE DEPITE REPOSITIONING, EYES HAVE HARD RIGHT UPWARD GAZE AND ARE FIXED. PUPILS ARE 4MM EQUAL AND REACTIVE. NO COUGH, GAG, SWALLOW. ABSENT PLANTAR. PROPOFOL AT 30MCG, WITHIN 5MIN OFF FOR EEG, POSTURING INCREASED, PROPOFOL RESUMED. PT DOES NOT BREATH OVER VENT. DR MOODY AT BEDSIDE THIS AM; UPDATE GIVEN, SEE ORDERS. PT REMAINS HYPERTENSIVE; HYDRALAZINE ORDERED. PT HAS VOMITED SEVERAL TIMES, WILL ASK FOR ZOFRAN. OGT WAS IN DISTAL ESOPHAGUS AND IS AT LIS.
--- NOTE | 2021-09-29 10:27 | NUR ---
DR ROBERTSON AT BEDSIDE. ACIDIZER HELPER AT BEDSIDE. PT COUGHING. ZOFRAN ORDERED FOR EMESIS.
--- NOTE | 2021-09-29 10:36 | NUR ---
Spiritual Care Visit. Pt. is intubated. Granddaughter is present. Palliative Care (Mercedes) is present. Facilitated discussion of family history with mandeep with a calming presence. Dr. Mcleod came to Pts. bedside as well as Nurse Jasmyn. Megan verbalized gratitude for the spiritual care visit. This crude oil treater will remain available to family and Palliative care team.
--- NOTE | 2021-09-29 12:18 | NUR ---
GOLD COLORED RING WITH SMALL GEENA LIKE STONE REMOVED FROM PT'S LEFT RING FINGER AND GIVEN TO PT'S VIRI PER HIS REQUEST.
[2021-09-29] MEDS ORDERED: TIZA4 PO (13:35)
--- NOTE | 2021-09-29 14:17 | NUR ---
DECEREBRATE LIKE POSTURING MOVEMENT INCREASED, PT HTN AT TIMES. ATIVAN 2MG GIVEN, FENTANYL GIVEN TO PREVENT WITHDRAWAL PT WAS USING FENTANYL PATCH AT HOME.
[2021-09-29 14:30] LABS: Albumin, Blood 2.8 g/dL (3.4-5.0); Anion Gap 12 mmol/L (6-16); Blood Urea Nitrogen 23 mg/dL (8-24); CO2, Blood 20 mmol/L (21-32); Calcium, Blood 7.7 mg/dL (8.5-10.1); Chloride, Blood 110 mmol/L (98-108); Creatinine, Blood 0.89 mg/dL (0.40-1.00); Glomerular Filtration Rate 75 (60-); Glucose, Blood 132 mg/dL (70-99); Phosphorus, Blood 5.6 mg/dL (2.5-4.9); Potassium, Blood 3.1 mmol/L (3.5-5.5); Sodium, Blood 142 mmol/L (136-145)
--- NOTE | 2021-09-29 18:12 | NUR ---
Spiritual Care Follow-up Visit. Pt. is intubated and non-responsive. Family memebers are present. Re-establish rapport and get a status update from Pts. brother Justin. Facilitated a brief family life review. [place] for Pt. Pts. daughter is at bedside and is carthtic. Pastoral care with a calming spirit is given. Family verbalized gratitude for the spiritual care visit.
--- NOTE | 2021-09-29 18:55 | NUR ---
FAMILY HAS BEEN AT BEDSIDE T/O SHIFT. STILL AWAITING EEG RESULTS. DECEREBRATE POSTURING HAS CONTINUED T/O SHIFT; ATIVAN/FENTANYL DID SEEM TO HELP DECREASE THIS. MYOCLONIC JERKING HAS SLOWED BUT IS STILL SEEN IN FACE. PT DOES NOT RESPOND TO PAIN. PT DOES NOT BREATH OVER VENT, BUT DOES HAVE COUGH. PUPILS REMAIN 4/4MM EQUAL AND REACTIVE BUT VERY SLUGGLISH TO LIGHT.
--- NOTE | 2021-09-29 19:15 | NUR ---
ASSUMPTION OF CARE PT REMAINS INTUBATED WITH VENT SETTINGS AC/PC 18/25/5/35%. SHE IS RECEIVING PROPOFOL 30MCG/KG/MIN AND NS 75ML/HR. NEURO: PUPILS 4MM, SLUGGISH TO RESPOND TO LIGHT, UPWARD GAZE. PT CONTINUES TO HAVE SLIGHT MYOCLONIC MOVEMENTS. EYES FLICKER, OCCASIONAL JAW TWITCHING. BUE ALTERNATE BETWEEN FLACCID AND RIGID WITH SLIGHT INTERNAL ROTATION. NO RESPONSE TO NAILBED PRESSURE. CONSTANT PLANTAR FLEXION AND RIGID BLE, OCCASIONAL INTERNAL TOE ROTATION. NO RESPONSE TO PRESSURE. NO GAG, COUGH, OR SWALLOW. LUNGS ARE COARSE IN UPPER LOBES, DIMINISHED IN BASES. ABDOMEN REMAINS DISTENDED BUT APPEARS DECREASED IN COMPARISON TO YESTERDAY. OGT CONNECTED TO LOW INT SUCTION. DUE TO PLACEMENT, NO MEDS TO BE GIVEN DOWN OGT. ASHTON PATENT AND DRAINING YELLOW/CLOUDY URINE. VSS AT THIS TIME. SEE SHIFT ASSESSMENT.
[2021-09-30 04:42] LABS: BASOPHILS ABSOLUTE AUTO 0.03 K/mm3 (0.00-0.23); BASOPHILS PERCENT AUTO 0 % (0-2); EOSINOPHILS ABSOLUTE AUTO 0.01 K/mm3 (0.00-0.68); EOSINOPHILS PERCENT AUTO 0 % (0-6); Hematocrit 36.8 % (33.0-51.0); Hemoglobin 12.5 g/dL (11.5-16.0); IMMATURE GRAN ABSOLUTE AUTO 0.05 K/mm3 (0.00-0.10); IMMATURE GRAN PERCENT AUTO 0 % (0-1); LYMPHOCYTES ABSOLUTE AUTO 1.67 K/mm3 (0.84-5.20); LYMPHOCYTES PERCENT AUTO 12 % (21-46); MONOCYTES ABSOLUTE AUTO 1.24 K/mm3 (0.16-1.47); MONOCYTES PERCENT AUTO 9 % (4-13); Mean Corpuscular HGB 30.1 pg (26.0-34.0); Mean Corpuscular Volume 89 fL (80-100); Mean Platelet Volume 10.9 fL (9.1-12.4); NEUTROPHILS PERCENT AUTO 79 % (41-73); Platelet Count 123 K/mm3 (150-400); RDW Coefficient Variation 13.2 % (11.7-14.2); RDW Standard Deviation 43.1 fL (35.1-46.3); Red Blood Cell Count 4.15 M/mm3 (3.80-5.20)
[2021-09-30 04:59] LABS: Albumin, Blood 2.5 g/dL (3.4-5.0); Albumin/Globulin Ratio 0.9 (0.8-1.8); Bilirubin, Direct 0.1 mg/dL (0.0-0.3); Bilirubin, Indirect 0.2 mg/dL (0.1-0.7); Bilirubin, Total 0.3 mg/dL (0.1-1.0); Bun/Creatinine Ratio 23.2 (12.0-20.0); Calcium, Blood 7.4 mg/dL (8.5-10.1); Creatinine, Blood 0.78 mg/dL (0.40-1.00); Globulin, Blood 2.9 g/dL (2.2-4.0); Phosphorus, Blood 3.7 mg/dL (2.5-4.9); Potassium, Blood 3.5 mmol/L (3.5-5.5); Total Protein, Blood 5.4 g/dL (6.4-8.2)
--- NOTE | 2021-09-30 06:04 | NUR ---
SHIFT SUMMARY PT REMAINS INTUBATED WITH VENT SETTINGS AC/PC 18/25/5/35%. SHE IS RECEIVING PROPOFOL 30MCG/KG/MIN AND NS 75ML/HR. NEURO: SHE REMAINS UNRESPONSIVE TO PAINFUL STIMULI. UPPER LIMBS ARE FLACCID. LOWER LIMBS RIGID WITH PLANTAR FLEXION. SEDATION VACATION THIS AM, PROPOFOL OFF FOR 30MIN. PUPILS 4MM, EQUAL, SLUGGISH TO RESPOND, UPWARD GAZE. UPPER LIMBS BECOME RIGID WITH INTERNAL ROTATION. LOWER LIMBS REMAIN UNCHANGED. NO RESPONSE TO PAINFUL STIMULI, NO GAG OR COUGH. HR INCREASED TO 105, SBP INCREASED TO 160S. SHE REMAINED COMPLIANT WITH VENT. PROPOFOL RESTARTED. RESP: VENT SETTINGS ABOVE. UPPER LOBES COARSE, DIMINISHED IN BASES. SCANT ETT SECRETIONS. COMPLIANT WITH VENT. CARDIAC: SINUS RHYTHM WITH RATE 90S-100S. SBP 130S-160S. PRN HYDRALAZINE ORDERED FOR SBP >175 AND/OR DBP >110. NO HYDRALAZINE GIVEN THIS SHIFT. STRONG RADIAL AND PEDAL PULSES. GI: ABDOMEN DISTENDED, FIRM TO PALPATION. BOWEL TONES HYPOACTIVE. OGT CONNECTED TO LOW INT SUCTION. OGT ONLY TO BE USED FOR SUCTION, DO NOT GIVE MEDS DOWN TUBE DUE TO PLACEMENT. 1 SMALL BM THIS SHIFT. : ASHTON PATENT AND DRAINING CLOUDY YELLOW URINE TO GRAVITY. SHIFT OUTPUT OF 700ML. SKIN: PALE APPEARANCE. MOTTLING ON BILAT KNEES. SKIN ALTERNATED BETWEEN COOL TO TOUCH TO WARM. TMAX 99.5 PER RECTAL PROBE. ICE PACKS AND FAN APPLIED. IVS: PICC TO ELISABETH, 18G RAC. CBG THIS AM 71. ORDER RECEIVED FOR 1 AMP D50 THAT IS INFUSING. WILL RECHECK CBG ONCE DONE. WILL REPORT TO ONCOMING RN.
--- NOTE | 2021-09-30 08:17 | NUR ---
AM NOTED.... ASSUMED CARE OF PT AT 0700, THE PT IS INTUBATED AND SEDATED WITH PROPOFOL AT 30MCG. THE PT'S ET TUBE IS 7.5 AND 22 AT THE LIPS. THE PT IS UNRESPONSIVE AT THIS TIME THE PT'S PUPILS ARE 3MM AND SLUGGISH, THE PT HAS A FIXED RIGHT UPWARD GAZE AND POSITIVE DOLLS EYES. THE PT DOES NOT RESPOND TO PAINFUL STIMULI. SHE HAS A VERY SLIGHT COUGH REFLEX WITH DEEP SUCTIONING NO GAG WAS NOTED ON THIS ASSESSMENT. L/S COARSE IN THE UPPER LOBES DIM IN THE LOWER THE PT'S RR IS 18 AND SHE IS NOT BREATHING OVER THE VENT. BT ARE PRESENT AND VERY HYPOACTIVE, ABD HAS MODERATE DISTENTION AND IS FIRM TO PALPATION. THE PT'S ASHTON IS PATENT AND DRAINING TO GRAVITY. WILL CONTINUE TO MONITOR.
--- NOTE | 2021-09-30 13:07 | NUR ---
Spiritual Care Dr. Robert is with Pt. who is inutbated and not responding. Family members are present. Some are catharic. With a calming presence, re-established rapport. Listened to Dr. Robert communicate Pts. condition, and prognosis. Will continue to be available to family.
--- NOTE | 2021-09-30 14:52 | NUR ---
Spiritual Care Check in. Pt. is still intubated and non responsive. Several family membrs are present. All are waiting to hear results of most recent Pt. EKG from Dr. Robert. Will monitor and be available to family through the day.
--- NOTE | 2021-09-30 16:58 | NUR ---
PT UPDATE.... THE PT'S HEAD CT SCAN RESULTS CAME IN, ICU PROVIDER AT THE BEDSIDE TO UPDATE THE PT'S FAMILY, PER THE CT SCAN RESULTS THE FAMILY WANTED TO GO COMFORT CARE. THE PNTB WAS CALLED BY THIS RN AND UPDATED, THEY CALLED THE FAMILY AND THE FAMILY AGREED THAT THEY WOULD HOLD OFF ON WITHDRAWING CARE AT THIS TIME SO THE COMFORT CARE ORDERS WERE D/C'd. CURRENTLY THE PT CONTINUES A DNR WITH ALL THE MEDICATIONS CONTINUED AT THIS TIME. WILL CONTINUE TO MONITOR.
--- NOTE | 2021-09-30 16:58 | NUR ---
Spiritual Care check-in Pt. is unresponsive in bed. Family members are present and welcome my visit. Pts. displays evidence of the ups and downs of normative grief. With a calming spirit, pastoral care is given and rapport is established with the spouse. After spouse departs, rapport is built with Pts. brother. Family seems to be in a holding pattern until organ donor preparations can be made. This flat lock operator affirm with Pts. brother that Mohs Surgeon/General Dermatologist Samuel Rapp is aircraft rigging and controls mechanic and available all weekend.
--- NOTE | 2021-09-30 17:00 | NUR ---
[facility] PHONE NUMBER.... THE CONTACT FOR [facility] REGARDING THIS PT IS DIRK GRIFFIN AND HIS NUMBER IS: [phone]. PER FLORY AT [facility] DIRK SHOULD BE HERE APROX 2029. FAMILY IS AWARE. WILL CONTINUE TO MONITOR.
--- NOTE | 2021-09-30 17:52 | NUR ---
SHIFT SUMMARY.... NO ACUTE NEGATIVE CHANGES NOTED THIS SHIFT. THE PNTB TEAM IS ON THE WAY FROM [place] AND WILL ARRIVE APROX 2029. THE PT'S VS HAVE BEEN STABLE FOR MOST OF THIS SHIFT THE PT'S HR HAS BEEN IN THE 120'S-130'S THE PROVIDER IS AWARE, THE PT HAS BEEN FEBRILE WITH TMAX AT 100.8, THE PT WAS MEDICATED WITH IV TORADOL WHICH SEEMED TO HELP A LITTLE BY BRINGING THE TEMP DOWN TO 100.6. THE PT WAS HYPERTENSIVE WITH SBPs IN THE 180'S-190'S THIS WAS MEDICATED WITH HYDRALAZINE WITH GOOD RESULTS. THE PT'S HR ALSO WAS NOTED TO RESPOND TO IV FENTANYL, PER THE FAMILY THE PT WAS ON A FENTANYL PATCH AT HOME. THE PT ASHTON IS PATENT AND DRAINING TO GRAVITY. SHE DID NOT HAVE A BM THIS SHIFT. THERE IS NOTED TO BE VERY THICK YELLOW WITH PINK TINGED SPUTUM SUCTIONED FROM THE ET TUBE, MOST OF IT IS SO THICK A LAVAGE IS NEEDED TO SUCTION IT OUT. THE PT CONTINUES TO POSTURE WITH ANY PHYSICAL STIMULATION. WILL CONTINUE TO MONITOR UNTIL REPORT IS GIVEN TO ONCOMING RN.
[2021-09-30 22:26] LABS: PCO2 Arterial 29.8 mmHg (35-45); PO2 Arterial 107 mmHg (80-100); pH Blood Arterial 7.47 (7.35-7.45)
[2021-09-30 22:42] LABS: International Normalized Ratio 1.07; Prothrombin Time Results 11.2 Sec (9.7-11.5)
[2021-09-30 22:49] LABS: Albumin, Blood 2.2 g/dL (3.4-5.0); Albumin/Globulin Ratio 0.8 (0.8-1.8); Bilirubin, Direct 0.3 mg/dL (0.0-0.3); Bilirubin, Indirect 0.2 mg/dL (0.1-0.7); Bilirubin, Total 0.5 mg/dL (0.1-1.0); Bun/Creatinine Ratio 17.1 (12.0-20.0); Calcium, Blood 7.4 mg/dL (8.5-10.1); Creatinine, Blood 0.76 mg/dL (0.40-1.00); Globulin, Blood 2.8 g/dL (2.2-4.0); Magnesium, Blood 1.4 mg/dL (1.6-2.4); Phosphorus, Blood 2.9 mg/dL (2.5-4.9); Potassium, Blood 3.4 mmol/L (3.5-5.5)
[2021-09-30 22:53] LABS: Source, Urine Foley catheter
[2021-09-30 22:54] LABS: BASOPHILS ABSOLUTE AUTO 0.02 K/mm3 (0.00-0.23); BASOPHILS PERCENT AUTO 0 % (0-2); EOSINOPHILS ABSOLUTE AUTO 0.01 K/mm3 (0.00-0.68); EOSINOPHILS PERCENT AUTO 0 % (0-6); Hematocrit 33.9 % (33.0-51.0); Hemoglobin 11.5 g/dL (11.5-16.0); IMMATURE GRAN ABSOLUTE AUTO 0.09 K/mm3 (0.00-0.10); IMMATURE GRAN PERCENT AUTO 1 % (0-1); LYMPHOCYTES ABSOLUTE AUTO 0.83 K/mm3 (0.84-5.20); LYMPHOCYTES PERCENT AUTO 7 % (21-46); MONOCYTES ABSOLUTE AUTO 1.09 K/mm3 (0.16-1.47); MONOCYTES PERCENT AUTO 9 % (4-13); Mean Corpuscular HGB 30.5 pg (26.0-34.0); Mean Corpuscular HGB Conc 33.9 g/dL (31.5-36.5); Mean Corpuscular Volume 90 fL (80-100); Mean Platelet Volume 11.5 fL (9.1-12.4); NEUTROPHILS ABSOLUTE AUTO 10.51 K/mm3 (1.96-9.15); NEUTROPHILS PERCENT AUTO 84 % (41-73); Platelet Count 118 K/mm3 (150-400); RDW Coefficient Variation 13.3 % (11.7-14.2); RDW Standard Deviation 44.3 fL (35.1-46.3); Red Blood Cell Count 3.77 M/mm3 (3.80-5.20); White Blood Cell Count 12.55 K/mm3 (4.00-11.30)
[2021-09-30 22:56] LABS: Appearance, Urine Clear (Clear); Bilirubin, Urine Neg (Neg); Blood, Urine Neg (Neg); Color, Urine Yellow (P-Yellow); Glucose Qualitative, Urine Neg (Neg); Ketones, Urine Neg (Neg); Leukocyte Esterase, Urine Neg (Neg); Nitrite, Urine Neg (Neg); Protein, Urine 1+ (Neg); Urobilinogen, Urine NORM (Normal)
--- NOTE | 2021-10-01 00:02 | NUR ---
ASSUMED CARE AT 1900/ PNTB AT BEDSIDE PT LAYING IN BED INTUBATED WHEN ARRIVED ONTO SHIFT. VENT SETTINGS AC/PC 18/5/35% Vt 400; ONLY A SMALL AMOUNT OF SPUTUM COLLECTED WHEN LAVAGED BY RT. PROPOFOL INFUSING AT 30MCG/KG/MIN; PT IS MINIMALLY REACTIVE TO NOXIOUS STIMULI; HR INCREASES WHEN SUCTIONED AND DURING ORAL CARE; PLANTAR REFLEX NEGATIVE; LIMBS STIFF. HR 135-140. SBP 130-150. OG TO LIS; NO MEDS TO GO THROUGH OF. ASHTON IN PLACE AND DRAINING TO GRAVITY. D10 INFUSING AT 40ML/HR. SEE SHIFT ASSESSMENT FOR FULL ASSESSMENT. PT DAUGHTER EMELY AT BEDSIDE. PNTB IN FACILITY AROUND 2029. SLOWLY MORE FAMILY ARRIVED INCLUDING VIRI, BROTHER VIRI AND HIS , A GRANDDAUGHTER, AND FRIEND. PNTB ABLE TO HAVE A MEETING IN A CONFRENCE ROOM WITH FAMILY. PNTB NURSE TALKED WITH REGARDING STANDING ORDER SHEET. SEVERAL LAB ORDERS PLACED; PLAN TO PLACE ART LINE IN THE AM. SEVERAL LAB VIALS DRAWN FOR PNTB AND AWAITING TO BE PICKED UP. ALL FAMILY LEFT AROUND 0000.
[2021-10-01 04:49] LABS: Anion Gap 9 mmol/L (6-16); Blood Urea Nitrogen 13 mg/dL (8-24); Bun/Creatinine Ratio 18.8 (12.0-20.0); CO2, Blood 21 mmol/L (21-32); Calcium, Blood 7.3 mg/dL (8.5-10.1); Chloride, Blood 108 mmol/L (98-108); Creatinine, Blood 0.69 mg/dL (0.40-1.00); Glomerular Filtration Rate 100 (60-); Glucose, Blood 122 mg/dL (70-99); Phosphorus, Blood 2.3 mg/dL (2.5-4.9); Potassium, Blood 3.4 mmol/L (3.5-5.5); Sodium, Blood 138 mmol/L (136-145)
--- NOTE | 2021-10-01 06:29 | NUR ---
END OF SHIFT SUMMARY NO ACUTE EVNETS OVER NIGHT. PT CONT TO BE INTUBATED WITH VENT SETTINGS AC/PC 18/5, FIO2 35%, Vt 300-450. PT POSTURES WITH ORAL CARE AND SUCTIONING; UPWARD GAZE NOTED AND PUPILS EQUIL AND REACTIVE TO LIGHT; PROPOFOL INFUSING AT 15MCG/KG/MIN; WAS ABLE TO TITRATE PROPOFOL DOWN TO SB BUT THAN PT HR INCREASED TO 150'S AND SBP INCREASES TO 190-200; WAS ABLE TO GIVE PRN FENTANYL AND START PROPOFOL AT 15MCG/KG/MIN AGAIN WHICH SEEMED TO HELP HR AND SBP. OG TO LIS, NOTHING IN OG TONIGHT. ASHTON IN PLACE WITH 400ML URINE OUTPUT. D10 INFUSING AT 45ML/HR. PICC TO ELISABETH DRESSING C/D/I. WILL REPORT TO AM RN WHEN AVAILABLE.
--- NOTE | 2021-10-01 07:17 | NUR ---
Received report from Andree MARES. Patient is intubated and sedated with 7.5 ET and 22 at teeth. Her vebt settings are PC 18, 35%, 5 PEEP and sats 98%. OG in place and is clamped and not to be used for intake. She withdrawls with care, moves head side to side, nodistal extremity movement and very stiff with passive movement. Pupils are 3 and equal and reactive. She has PICC line to ELISABETH dressing intact and site WNL and is infusing Propofol at 15 mcg/kg/min, Dr at 40 ml/hr. She has 16 Fr summers draining to gravity clear yellow urine. 2+ edema to hands and feet.
--- NOTE | 2021-10-01 09:30 | NUR ---
No changes to neuro, vent settings or gtt's. She remaisn tachy and hypertensive. Medicated for hypertension per JUN. Reposition Q2 and boosted in bed. Rodriguez remains patentwith adequate output. Temp 100.3. Light bradford ET secretions moderate amounts.
--- NOTE | 2021-10-01 11:40 | NUR ---
Dr Robert in and placed Art line left wrist and went well. Systolics 130's and remains tachy 130-140's. She is posturing with ant touch stimulation and becomes rigid, used paralytic for procedure. She still withdrawls with oral care or turning. Vent settings remain PC 18/35.5 and sats 97%. Donor team is here and continue ot work patient up. Family here at bedside.
--- NOTE | 2021-10-01 13:30 | NUR ---
Medicated for pain and hypertension again earlier and since systolic has dropped to 80-[address] Robert requested to start Levophed and is at 5. The also gave 1L bolus LR to see if would help with HR. Donor team wants q6 hr urine totals and emptied 550 ml.
--- NOTE | 2021-10-01 14:35 | NUR ---
Brief bedside visit done this am. I did not note any nonverbal indicators of pain, anxiety, distress or restlessness. No family at bedside this am when I was there but did speak with pt's brother later in the day. He updated me on donor team plan and schedule. Pal Care to remain available to family as needed.
[2021-10-01 15:13] LABS: Source, Urine Foley catheter
[2021-10-01 15:28] LABS: BASOPHILS ABSOLUTE AUTO 0.03 K/mm3 (0.00-0.23); BASOPHILS PERCENT AUTO 0 % (0-2); EOSINOPHILS PERCENT AUTO 0 % (0-6); Hematocrit 35.9 % (33.0-51.0); Hemoglobin 12.1 g/dL (11.5-16.0); IMMATURE GRAN ABSOLUTE AUTO 0.18 K/mm3 (0.00-0.10); IMMATURE GRAN PERCENT AUTO 1 % (0-1); LYMPHOCYTES ABSOLUTE AUTO 0.94 K/mm3 (0.84-5.20); LYMPHOCYTES PERCENT AUTO 5 % (21-46); MONOCYTES ABSOLUTE AUTO 1.42 K/mm3 (0.16-1.47); MONOCYTES PERCENT AUTO 7 % (4-13); Mean Corpuscular HGB 30.3 pg (26.0-34.0); Mean Corpuscular HGB Conc 33.7 g/dL (31.5-36.5); Mean Corpuscular Volume 90 fL (80-100); Mean Platelet Volume 10.3 fL (9.1-12.4); NEUTROPHILS ABSOLUTE AUTO 17.18 K/mm3 (1.96-9.15); NEUTROPHILS PERCENT AUTO 87 % (41-73); Platelet Count 214 K/mm3 (150-400); RDW Coefficient Variation 13.2 % (11.7-14.2); RDW Standard Deviation 43.7 fL (35.1-46.3); Red Blood Cell Count 3.99 M/mm3 (3.80-5.20); White Blood Cell Count 19.75 K/mm3 (4.00-11.30)
[2021-10-01 15:28] LABS: Bilirubin, Urine Neg (Neg); Blood, Urine Neg (Neg); Color, Urine Yellow (P-Yellow); Glucose Qualitative, Urine 1+ (Neg); Ketones, Urine 1+ (Neg); Leukocyte Esterase, Urine Neg (Neg); Nitrite, Urine Neg (Neg); Protein, Urine 1+ (Neg); Urobilinogen, Urine NORM (Normal)
--- NOTE | 2021-10-01 15:30 | NUR ---
Family at bedside . Just finished assessment with PNTB rep. Pupils 3 and reactive but sluggish. Patient's mouth stay clinched on bite block, Extremities stiff and no movements, withdrawls with pain and stimuli, and patient postures when touch stimulation. HR 137, art line 125/75. Vent setting PC 18, 35, 5 and sats 97%. Rodriguez patent and rectal temp of 100.7. Propofol increased to 30 mcg/kg/min, D10 at 40 ml/hr,Levophed at 3 mcg/min and NS at TKO.
[2021-10-01 15:49] LABS: Albumin, Blood 2.2 g/dL (3.4-5.0); Albumin/Globulin Ratio 0.7 (0.8-1.8); Bilirubin, Direct 0.3 mg/dL (0.0-0.3); Bilirubin, Total 0.5 mg/dL (0.1-1.0); Bun/Creatinine Ratio 14.5 (12.0-20.0); Calcium, Blood 8.1 mg/dL (8.5-10.1); Creatinine, Blood 0.69 mg/dL (0.40-1.00); Globulin, Blood 3.3 g/dL (2.2-4.0); Magnesium, Blood 1.7 mg/dL (1.6-2.4); Phosphorus, Blood 2.3 mg/dL (2.5-4.9); Potassium, Blood 3.3 mmol/L (3.5-5.5); Total Protein, Blood 5.5 g/dL (6.4-8.2)
[2021-10-01 16:05] LABS: Appearance, Urine Hazy (Clear)
[2021-10-01 16:06] LABS: Bacteria Mod /hpf; Squamous Epithelial Cells Few /hpf (Few)
[2021-10-01 16:06] LABS: International Normalized Ratio 1.03; Prothrombin Time Results 10.8 Sec (9.7-11.5)
--- NOTE | 2021-10-01 18:00 | NUR ---
Family still at bedside. Plan has been set to go to OR at 1400. Patient continues to posture with touch, bilateral pupils sluggish and equal and reactive, Withdrawls with pain or nocious stimuli. PICC Line infusing D10 at 40 ml/hr, Propofol at 60 mcg/kg/min, Levophed remains on standby for systolic 130's. Rodriguez patent and had 850 ml out today. She continues to have temp 101.1 and placed fan on patient.
[2021-10-01 21:37] LABS: BASOPHILS ABSOLUTE AUTO 0.04 K/mm3 (0.00-0.23); BASOPHILS PERCENT AUTO 0 % (0-2); EOSINOPHILS PERCENT AUTO 0 % (0-6); Hematocrit 35.5 % (33.0-51.0); Hemoglobin 12.3 g/dL (11.5-16.0); IMMATURE GRAN PERCENT AUTO 1 % (0-1); LYMPHOCYTES ABSOLUTE AUTO 1.28 K/mm3 (0.84-5.20); LYMPHOCYTES PERCENT AUTO 7 % (21-46); MONOCYTES PERCENT AUTO 8 % (4-13); Mean Corpuscular HGB 30.5 pg (26.0-34.0); Mean Corpuscular HGB Conc 34.6 g/dL (31.5-36.5); Mean Corpuscular Volume 88 fL (80-100); NEUTROPHILS PERCENT AUTO 84 % (41-73); RDW Coefficient Variation 13.2 % (11.7-14.2); RDW Standard Deviation 43.1 fL (35.1-46.3); Red Blood Cell Count 4.03 M/mm3 (3.80-5.20); White Blood Cell Count 19.32 K/mm3 (4.00-11.30)
[2021-10-01 21:39] LABS: Mean Platelet Volume 10.6 fL (9.1-12.4); Platelet Count 199 K/mm3 (150-400)
--- NOTE | 2021-10-01 21:44 | NUR ---
ASSUMED CARE AT 1900 PT LAYING IN BED INTUBATED WITH VENT SETTINGS AC/PC 18/5, FIO2 35%, Vt 520'S; SMALL AMOUNT OF THICK SPUTUM FROM ETT ONLY WHEN LAVAGED. PT SEDATED WITH POROFOL INFUSING AT 30MCG/KG/MIN; PT ONLY REACTS TO TOUCH BY POSTURING, PLANTAR REFELX NEGATIVE; NO GAG, NO COUGH, LIMBS STILL. MAX TEMP 101.0. HR 140'S. HR AND BP ELEVATE DURING ANY KIND OF PERSONAL CARE; HYDROLAZINE GIVEN OFR DBP >100; BP IMPROVED NOW WITH SBP 120-150 AND DBP <100; ART LINE TO LT WRIST PATENT WITH DRESSING C/D/I. OG TO LIS; NO MEDS TO GO INTO OG. ASHTON IN PLACE AND DRAINING TO GRAVITY; HOURLY URINE OUTPUT NOTED. PICC TO ELISABETH PATENT WITH DRESSING C/D/I. D10 INFUSING AT 40ML/HR. SEE SHIFT ASSESSMENT FOR FULL ASSESSMENT.
[2021-10-01 21:45] LABS: International Normalized Ratio 0.98; Prothrombin Time Results 10.3 Sec (9.7-11.5)
[2021-10-01 21:51] LABS: Magnesium, Blood 1.7 mg/dL (1.6-2.4)
[2021-10-01 22:02] LABS: Albumin, Blood 2.2 g/dL (3.4-5.0); Albumin/Globulin Ratio 0.6 (0.8-1.8); Bilirubin, Direct 0.2 mg/dL (0.0-0.3); Bilirubin, Indirect 0.3 mg/dL (0.1-0.7); Bilirubin, Total 0.5 mg/dL (0.1-1.0); Bun/Creatinine Ratio 15.2 (12.0-20.0); Calcium, Blood 8.2 mg/dL (8.5-10.1); Creatinine, Blood 0.66 mg/dL (0.40-1.00); Globulin, Blood 3.6 g/dL (2.2-4.0); Phosphorus, Blood 2.2 mg/dL (2.5-4.9); Potassium, Blood 3.1 mmol/L (3.5-5.5); Total Protein, Blood 5.8 g/dL (6.4-8.2)
[2021-10-01 22:12] LABS: Source, Urine Foley catheter
[2021-10-01 22:23] LABS: Bilirubin, Urine Neg (Neg); Blood, Urine Neg (Neg); Glucose Qualitative, Urine 2+ (Neg); Ketones, Urine 2+ (Neg); Leukocyte Esterase, Urine Neg (Neg); Nitrite, Urine Neg (Neg); Protein, Urine 1+ (Neg); Urobilinogen, Urine NORM (Normal)
[2021-10-01 22:37] LABS: Appearance, Urine Clear (Clear); Color, Urine Yellow (P-Yellow)
[2021-10-02 02:56] LABS: SARS-Cov-2 (COVID-19) PCR, MMC NEGATIVE (NEGATIVE)
--- NOTE | 2021-10-02 03:04 | NUR ---
[facility] FROM [facility] CALLED FOR AN UPDATE. PROVIDED MOST CURRENT LAB RESULTS AND VITALS. NEW ORDERS GIVEN TO REPLACE CALCIUM, POTASSIUM, PHOS, AND MAG.
--- NOTE | 2021-10-02 06:11 | NUR ---
END OF SHIFT SUMMARY NO ACUTE EVENTS OVER NIGHT. PT CONT TO BE INTUBATED WITH VENT SETTINGS AC/PC 18/5, FIO2 35%. PT POSTURES WITH ANY STIMULI; PUPILS REACTIVE AND FIXED UPWARDS; PROPOFOL INFUSING AT 30MCG/KG/MIN. HR CORRALATES WITH STIMULI; HR INCREASES TO 140-150'S DURING CARE AND RETURNS TO 120-130 WHEN LEFT ALONE. PULSE PRESSURE BECOMING MORE NARROW, SBP 90-150, DBP 80-130; HYDROLAZINE AND FENTANYL GIVEN AND HELPFUL TO BRING DBP <100; MAP'S >65; LEVOPHED ON SB ALL SHIFT; ART LINE TO LT RADIAL PATENT. NO OUTPUT FROM OG. ASHTON PATENT AND DRAINING TO GRAVITY. PICC TO ELISABETH PATENT. CALCIUM, MAG, PHOS, AND POTASSIUM REPLACED; WILL DRAW FOLLOW UP LABS AROUND 0630. WILL REPORT TO AM RN WHEN AVAILABLE.
[2021-10-02 06:59] LABS: Calcium, Blood 8.2 mg/dL (8.5-10.1); Creatinine, Blood 0.54 mg/dL (0.40-1.00); Magnesium, Blood 2.2 mg/dL (1.6-2.4); Phosphorus, Blood 2.6 mg/dL (2.5-4.9); Potassium, Blood 3.3 mmol/L (3.5-5.5)
--- NOTE | 2021-10-02 07:07 | NUR ---
Received report from Andree MARES. Patient is intubated and sedated. She has 7.5 ET and is at 22cm at teeth with vent settingas of PC 18, 35, 5, and sats 97%. She has PICC line to ELISABETH Dressing intact and site WNL's and is infusing Propofol at 20 mcg/kg/min, D10 at 40 ml/hr. She also has 18 ga IV to RAC flushed and SL. OG in place and only used for suction, no input. She postures inward with any stimulation and withdrawls with care or noctious stimuli. 16 Fr Rodriguez draining to gravity yellow urine. She has rectal temp probe in place and a temp of 98.1. She has art line to left radial with systolics 150's and HR 120's.
--- NOTE | 2021-10-02 08:20 | NUR ---
Repositioned paient, oral care done as possible, her mouth is clinched down and tongue moderately swollen, She has oribital edema and pupils 4 bilateral and very sluggish to light. Propofol increased back to 30 mcg/kg/min.
--- NOTE | 2021-10-02 09:30 | NUR ---
medicated for systolic 180's, and pain per MAR. pupils bilateral minimal to non reactive and are 5's, with orbital edema. Continues to posture with stimulation, GCS 3, no vent or gtt changes.
--- NOTE | 2021-10-02 10:23 | NUR ---
Spiritual care visit conducted. I visit with pt's granddtr, Mercedes, in pt's rm. We discuss her struggels and trauma from the events surrounding pt's hospitalization as well as her personal emotional challenges that existed before this event. I provide therapeutic listening and a calming presence. I also begin the process of setting up the honor walk for pt and family by sending out a hospital wide email notifying them of the plans for the afternoon as we attempt to honor the pt and family for the generous gift of organ donation.
[2021-10-02 10:54] LABS: BASOPHILS ABSOLUTE AUTO 0.06 K/mm3 (0.00-0.23); BASOPHILS PERCENT AUTO 0 % (0-2); EOSINOPHILS ABSOLUTE AUTO 0.01 K/mm3 (0.00-0.68); EOSINOPHILS PERCENT AUTO 0 % (0-6); Hematocrit 36.3 % (33.0-51.0); Hemoglobin 12.5 g/dL (11.5-16.0); IMMATURE GRAN ABSOLUTE AUTO 0.34 K/mm3 (0.00-0.10); IMMATURE GRAN PERCENT AUTO 2 % (0-1); LYMPHOCYTES ABSOLUTE AUTO 1.12 K/mm3 (0.84-5.20); LYMPHOCYTES PERCENT AUTO 5 % (21-46); MONOCYTES ABSOLUTE AUTO 1.83 K/mm3 (0.16-1.47); MONOCYTES PERCENT AUTO 9 % (4-13); Mean Corpuscular HGB 30.6 pg (26.0-34.0); Mean Corpuscular HGB Conc 34.4 g/dL (31.5-36.5); Mean Corpuscular Volume 89 fL (80-100); Mean Platelet Volume 10.2 fL (9.1-12.4); NEUTROPHILS ABSOLUTE AUTO 17.97 K/mm3 (1.96-9.15); NEUTROPHILS PERCENT AUTO 84 % (41-73); Platelet Count 249 K/mm3 (150-400); RDW Coefficient Variation 13.3 % (11.7-14.2); RDW Standard Deviation 43.8 fL (35.1-46.3); Red Blood Cell Count 4.08 M/mm3 (3.80-5.20); White Blood Cell Count 21.33 K/mm3 (4.00-11.30)
[2021-10-02 11:04] LABS: Source, Urine Foley catheter
[2021-10-02 11:08] LABS: International Normalized Ratio 0.97; Prothrombin Time Results 10.2 Sec (9.7-11.5)
--- NOTE | 2021-10-02 11:08 | NUR ---
Stat labs drawn for pre OR and PNTB. Alot of family at bedside. Keppra and Lovenox ok'd by PNTB and given.
[2021-10-02 11:11] LABS: Bilirubin, Urine Neg (Neg); Blood, Urine Neg (Neg); Glucose Qualitative, Urine 3+ (Neg); Ketones, Urine 1+ (Neg); Leukocyte Esterase, Urine Neg (Neg); Nitrite, Urine Neg (Neg); Protein, Urine 1+ (Neg); Specific Gravity, Urine 1.025 (1.003-1.022); Urobilinogen, Urine NORM (Normal)
[2021-10-02 11:14] LABS: Albumin/Globulin Ratio 0.6 (0.8-1.8); Bilirubin, Direct 0.2 mg/dL (0.0-0.3); Bilirubin, Total 0.4 mg/dL (0.1-1.0); Bun/Creatinine Ratio 13.5 (12.0-20.0); Calcium, Blood 8.2 mg/dL (8.5-10.1); Creatinine, Blood 0.52 mg/dL (0.40-1.00); Globulin, Blood 3.5 g/dL (2.2-4.0); Magnesium, Blood 2.2 mg/dL (1.6-2.4); Phosphorus, Blood 2.3 mg/dL (2.5-4.9); Potassium, Blood 3.1 mmol/L (3.5-5.5); Total Protein, Blood 5.5 g/dL (6.4-8.2)
[2021-10-02 11:34] LABS: Appearance, Urine Clear (Clear); Color, Urine Yellow (P-Yellow)
--- NOTE | 2021-10-02 12:27 | NUR ---
Bedside visit to family. Pt's brother introduced me to additional family members. They are spending time together choosing pt's favorite music for a playlist to be played in the OR. Other family has been in to say good by. This was primarily a supportive visit. Pt cont to look very comfortable.
--- NOTE | 2021-10-02 14:44 | NUR ---
Spiritual care visit conducted. I faciltaed and spoke the blessing for the honor walk, as well as provided a prayer and anointing of pt in the OR just prior to TOD. I provide grief support and a calming presence. Family respond well and show signs of being comforted
--- NOTE | 2021-10-02 14:45 | NUR ---
Around 1320 patient systolic dropped to 70 and gave NS 500 ml bolus and paged Dr Robert and alerted him of patients condtion. He arrived quickly and we decided on Phenylepherine 100 mcg to help with pressures and increased to 86 Systolic and we decided to head to OR with family. She started to drop again and gave 150 mcg phenylepherine and systolic back up to 95. We proceded to through honor parade to OR where we set up to there monitor. Gave 100mcg Fentanyl and 2 mg Ativan just prior to extubation at roughly 1410, At 1415 gave another 100 mcg Fentanyl and Ativan 2mg and she passed shortly after at [address] Robert
== END 2021-10-02 14:33 | DRG 208 ==
LOC: ER 13:52 → ICUW 14:30
PROVIDERS: Emergency Medicine; Internal Medicine Critical Care Medicine; Nurse Practitioner Acute Care; ADMIT Hospitalist
PROC: 5A1945Z Respiratory Ventilation, 24-96 Consecutive Hours (ICD-10-PCS; principal; 2021-09-28)
PROC: 5A12012 Performance of Cardiac Output, Single, Manual (ICD-10-PCS; 2021-09-28)
PROC: 03HY32Z Insertion of Monitoring Device into Upper Artery, Percutaneous Approach (ICD-10-PCS; 2021-09-28)
PROC: 4A133B1 Monitoring of Arterial Pressure, Peripheral, Percutaneous Approach (ICD-10-PCS; 2021-09-28)
PROC: 4A133J1 Monitoring of Arterial Pulse, Peripheral, Percutaneous Approach (ICD-10-PCS; 2021-09-28)
PROC: 02H633Z Insertion of Infusion Device into Right Atrium, Percutaneous Approach (ICD-10-PCS; 2021-09-28)
DX: J96.90 Respiratory failure, unspecified, unspecified whether with hypoxia or hypercapnia (principal); J18.9 Pneumonia, unspecified organism; G93.6 Cerebral edema; R40.20 Unspecified coma; G93.1 Anoxic brain damage, not elsewhere classified; E87.1 Hypo-osmolality and hyponatremia; I46.9 Cardiac arrest, cause unspecified; Z66 Do not resuscitate; Z51.5 Encounter for palliative care; Z78.1 Physical restraint status; Z20.822 Contact with and (suspected) exposure to COVID-19; K21.9 Gastro-esophageal reflux disease without esophagitis; M79.7 Fibromyalgia; F41.9 Anxiety disorder, unspecified; I10 Essential (primary) hypertension; F32.A Depression, unspecified; E03.9 Hypothyroidism, unspecified; F17.210 Nicotine dependence, cigarettes, uncomplicated; D72.825 Bandemia; E87.6 Hypokalemia; D72.829 Elevated white blood cell count, unspecified; T18.108A Unspecified foreign body in esophagus causing other injury, initial encounter; J30.9 Allergic rhinitis, unspecified; J44.9 Chronic obstructive pulmonary disease, unspecified; G89.4 Chronic pain syndrome; K58.9 Irritable bowel syndrome, unspecified; N80.9 Endometriosis, unspecified; Z98.51 Tubal ligation status; Z90.710 Acquired absence of both cervix and uterus; Z90.49 Acquired absence of other specified parts of digestive tract; Z90.89 Acquired absence of other organs; Z90.12 Acquired absence of left breast and nipple; Z98.49 Cataract extraction status, unspecified eye; Z98.890 Other specified postprocedural states; Z88.0 Allergy status to penicillin; Z88.1 Allergy status to other antibiotic agents; Z88.2 Allergy status to sulfonamides; Z88.8 Allergy status to other drugs, medicaments and biological substances; Z79.51 Long term (current) use of inhaled steroids; Z79.899 Other long term (current) drug therapy; X58.XXXA Exposure to other specified factors, initial encounter; Z79.891 Long term (current) use of opiate analgesic
CPT/HCPCS: 0241U; 31500; 36415; 36569; 36600; 36620; 51703; 70450; 71045; 74177; 80048; 80053; 80069; 81001; 82150; 82248; 82803; 82947; 83036; 83690; 83735; 83880; 84100; 84484; 85025; 85379; 85610; 85730; 86850; 86900; 86901; 87040; 87070; 87077; 87086; 87186; 87205; 92950; 93005; 93010; 93306; 94002; 94003; 94640; 94664; 94762; 95819; 96361; 96374; 99291-25; A9270; C1751; C1894; C9113; J0360; J0610; J1265; J1644; J1650; J1885; J1953; J1956; J2060; J2250; J2370; J2405; J2704; J2930; J3010; J3475; J3480; J7030; J7060; J7120; Q9967; U0004

== ENCOUNTER 2021-09-30 20:33 | Inpatient (IN) | payer OTHER ==
[~2021-09-30 20:33] MED LIST changes: +TIZA4 PO
== END 2021-10-02 14:33 | DRG 951 ==
LOC: SURS 20:33
PROVIDERS: ADMIT Hospitalist
DX: Z52.89 Donor of other specified organs or tissues (principal); Z52 Donors of organs and tissues; Z52.10 Skin donor, unspecified
CPT/HCPCS: 31500; 36415; 36620; 71045; 80048; 80053; 80069; 81001; 82150; 82248; 82803; 82947; 83036; 83690; 83735; 84100; 85025; 85610; 85730; 86850; 86900; 86901; 87040; 87077; 87086; 87186; 94002; 94003; 94640; 94762; A9270; C9113; J0360; J0610; J1644; J1650; J1953; J1956; J2060; J2370; J2704; J3010; J3475; J3480; J7060; J7120; U0004